=== PATIENT | female | born 1950 | race Caucasian/White ===

== ENCOUNTER 2017-09-18 09:08 | Emergency (ER) | payer OTHER ==
[~2017-09-18] VITALS: Ht 162.6 cm; Wt 69.7 kg
[~2017-09-18 09:08] MED LIST: Aspirin E.C. PO; Feosol PO; Hyzaar 100-12.5 PO; LIDODERM 5% P1 PATCH TD; PRILOSEC40 MG PO; Tylenol Extra Streng PO; VOLTAREN 1% GE100 GM TP; Vicodin,Norco 5/325 PO; Vitamin D PO; Wellbutrin XL PO; celeBREX PO
[2017-09-18] MEDS ORDERED: KEFLEX500 MG PO (11:06)
[2017-09-18] MEDS ORDERED: MOTRIN600 MG PO (11:06)
[2017-09-18 11:15] VITALS: BP 147/84
== END 2017-09-18 11:20 | disposition home or self-care (01) ==
LOC: EME 09:08
DX: L03.116 Cellulitis of left lower limb (principal); M79.605 Pain in left leg; F32.9 Major depressive disorder, single episode, unspecified; G89.29 Other chronic pain; I10 Essential (primary) hypertension; K21.9 Gastro-esophageal reflux disease without esophagitis; Z79.82 Long term (current) use of aspirin
CPT/HCPCS: 73590; 93971; 99281; 99284